=== PATIENT | female | born 1985 | race African-American/Black ===

== ENCOUNTER 2017-04-14 21:39 | Inpatient (IN) | payer MEDICARE ==
[~2017-04-14] VITALS: Ht 167.6 cm; Wt 90.7 kg
--- NOTE | ~2017-04-14 | PN ---
Unit #: [id number] #: [id number] Patient: TWYLA EGAN [id number] [facility] [address] [place] [address] [id number] MR#: [id number] NAME: TWYLA EGAN. ROOM: [facility] Age: 32 Sex: F Admission Date: 04/14/2017 : 1985 Attending Physician: Billy Frederick M.D. Admitting Physician: Billy Frederick M.D. Primary Care Physician: Primary Care Physician Aby NEW NOTES DATE 04/16/2017 DISCUSSION Shona is a 32-year-old female, seen on 04/16/2017. The patient interviewed, chart reviewed, and obtained information from the nursing staff. The patient liked to be addressed as Sincere, the patient was compliant and cooperative, compliant with medication, able to answer questions coherently. The patient's vital signs, 98.0, 84, 16, and 133/56. The patient seemed somewhat guarded, paranoid, isolative. REVIEW OF SYSTEMS Complete review of systems unremarkable. MENTAL STATUS EXAMINATION General appearance: Patient dressed casually in hospital attire. Attention span and concentration, fair. Oriented in place and person. Mood and affect, sad, dysphoric, flat. Speech, monotone. Thought process, guarded, denied any thoughts of harming self or others, denied any hallucinations. Recent and remote memory, poor. Insight and judgment, poor. DIAGNOSIS Bipolar mood disorder, NOS. ASSESSMENT/PLAN Advised to continue with the current medication and therapeutic protocol, and if needed consider further adjustment of medication. Dictated by... Moi Cummings/sharlene TD: 04/17/2017 07:10 JOB #: [id number] Unit #: [id number] #: [id number] Patient: TWYLA EGAN LASHA NEW NOTES Page 1 of 1 X Billy Frederick MD PROGRESS NOTE
--- NOTE | ~2017-04-14 | PA ---
Unit #: [id number] #: [id number] [facility]: [facility] [id number] [facility] [address] [place] [address] [id number] MR#: [id number] NAME: TWYLA EGAN. ROOM: [facility] Age: 32 Sex: F Admission Date: 04/14/2017 : 1985 Date of Assessment: Attending Physician: Billy Frederick M.D. Admitting Physician: Billy Frederick M.D. Primary Care Physician: Primary Care Physician No PSYCHIATRIC ASSESSMENT DATE OF SERVICE 04/14/2017. INFORMANTS The patient reliability, poor; chart reliability, good. CHIEF COMPLAINT None from patient, but agitated. HISTORY OF PRESENT ILLNESS Ms. Mejía is a 32-year-old female who became very upset when use pronoun she. The patient was having rapid speech, pressured speech, agitation, paranoia, mood lability. The patient presented to EPS for the first time. She is not currently open with [facility]. The patient has a history of [facility] and Dr. Tidwell in 2011 diagnosed with bipolar mood disorder. The patient told us that she feels that she is a male her whole life. The patient also reported that she is going to be the next . The patient was rambling in variety of subjects, rapid thought process, guarded paranoid, agitation mood lability, hostile. The patient was unable to give any reliable information. The patient denied any suicidal or homicidal ideation, but delusional, paranoid, delusions of grandeur, agitation. The patient needing inpatient admission at this time for psychiatric stabilization. PAST PSYCHIATRIC HISTORY Remarkable for history of outpatient treatment with Dr. Tidwell for schizophrenia/bipolar mood disorder. History of inpatient [facility] at [facility] twice. FAMILY HISTORY AND SOCIAL HISTORY The patient lives with mother. No history of abuse. No known history of any legal problems known at this time. History of bipolar disorder and depression in mother and maternal grandmother. MEDICAL HISTORY Unremarkable for any chronic medical illness. Musculoskeletal; muscle strength and tone, no atrophy or abnormal movement. Gait normal. MEDICATION HISTORY None available at this time. ALLERGIES No known drug allergies. Unit #: [id number] #: [id number] Patient: TWYLA EGAN SUBSTANCE ABUSE HISTORY History of alcohol use socially. Marijuana, last use 04/12/2017. The patient is poor historian. REVIEW OF SYSTEMS HEENT: Eyes, clear. Ears, nose, mouth, and throat; clear. CARDIOVASCULAR: Unremarkable. RESPIRATORY: Unremarkable. GI: Unremarkable. : Unremarkable. SKIN: Unremarkable. LYMPH NODE: Unremarkable. NEUROLOGIC: Unremarkable. ENDOCRINE: Unremarkable. HEMATOLOGIC: Unremarkable. ALLERGIC/IMMUNOLOGIC: Unremarkable. MUSCULOSKELETAL: Muscle strength and tone, no atrophy or abnormal movement. Gait normal MENTAL STATUS EXAMINATION CONSTITUTIONAL: Measurement of vital signs; temperature 97.9, pulse 72, respirations 16, blood pressure 139/83, height 5 feet 6 inches, and weight 200 pounds. GENERAL APPEARANCE: The patient dressed in hospital attire. No facial deformity noted. MUSCULOSKELETAL: Please see above. PSYCHIATRIC EXAMINATION Description of speech, rambling, rapid, pressured. Description of thought process, circumstantial. Description of association, guarded and paranoid. Description of abnormal psychotic thinking, delusional, paranoid, agitated, hostile. Mood lability, attending to internal stimuli. Description of the patient's judgment, concerning everyday activity, poor. Social situation, poor. Concerning psychiatric condition, poor. Complete mental status examination; oriented in self. Recent and remote memory, poor. Attention span and concentration, poor. Language, fair. Fund of knowledge, poor. Vocabulary, poor. Mood and affect, labile. Insight and judgment, poor. ASSETS AND LIABILITIES Assets; the patient is articulate; able to take care of her ADL. Liability; history of bipolar disorder; psychosis. ADMITTING DIAGNOSES Schizophrenia, chronic, paranoid type F20.0; rule out substance abuse disorder. Secondary diagnosis: Deferred. Medical diagnosis: None. Stressors: Psychosocial stressors. PSYCHIATRIC PLAN AND TREATMENT GOAL AND DISCHARGE PLAN 1. Advised to admit the patient on the inpatient unit. Provide safe, Unit #: [id number] #: [id number] Patient: TWYLA EGAN supportive, and structured environment. 2. Ordered labs; CBC, CMP, UA, and UDS. Advised Zyprexa 10 mg, Cogentin 1 mg, Ativan 1 mg now dose. The patient to attend all the programing on the inpatient unit with structured milieu, group therapy. Treatment goal; to attain euthymic mood, control psychotic symptoms. 3. Discharge plan; plan to stabilize the patient and consider followup in outpatient program. ESTIMATED LENGTH OF STAY 2 weeks. Dictated by... Moi Cummings/anne-marie TD: 04/15/2017 20:05 JOB #: [id number] PSYCHIATRIC ASSESSMENT Page 1 of 1 X Billy Frederick MD X PSYCHIATRIC ASSESSMENT
--- NOTE | ~2017-04-14 | DS ---
Unit #: [id number] #: [id number] Patient: TWYLA EGAN [id number] [facility] [address] [place] [address] [id number] MR#: [id number] NAME: TWYLA EGAN. ROOM: [facility] Age: 32 Sex: F Admission Date: 04/14/2017 : 1985 Discharge Date: 04/17/2017 Attending Physician: Billy Frederick M.D. Primary Care Physician: Primary Care Physician No DISCHARGE SUMMARY REASON FOR ADMISSION Psychosis. DIAGNOSTIC STUDIES LABORATORY DATA: Unremarkable. HOSPITAL COURSE The patient was admitted to inpatient unit on April 14 and discharged on 04/17/2017. The patient was treated with group therapy, individual therapy, structured milieu, and medication management. The patient was responsive to treatment, showed improvement. Subsequently the patient was discharged with a plan to follow up in outpatient program. DISCHARGE MEDICATIONS 1. Desyrel 50 mg at bedtime for sleep. 2. Haldol 10 mg at bedtime for psychosis. 3. Cogentin 1 mg at bedtime for EPS symptom. DISCHARGE DIAGNOSES PSYCHIATRIC: Schizophrenia, chronic, paranoid type, F20.0 Rule out substance abuse disorder. SECONDARY: Deferred. MEDICAL: None. STRESSORS: Psychosocial stressor. FOLLOWUP CARE The patient to follow up in outpatient clinic as per social services assistant. CONDITION AT DISCHARGE The patient pleasant, cooperative. Denied any psychotic symptom or any suicidal ideation. PROGNOSIS Guarded. DIET AND ACTIVITY As tolerated. Dictated by... Billy Frederick M.D. SZC/robert Unit #: [id number] #: [id number] Patient: TWYLA EGAN TD: 04/18/2017 08:55 JOB #: [id number] DISCHARGE SUMMARY Page 1 of 1 X Billy Frederick MD X DISCHARGE SUMMARY
--- NOTE | ~2017-04-14 | HP ---
Unit #: [id number] #: [id number] Patient: SHONA GONZALEZ [id number] [place] [address] [id number] I MR#: [id number] NAME: SHONA GONZALEZ ROOM: [facility] Age: 32 Sex: F Admission Date: 04/14/2017 : 1985 Attending Physician: Billy Frederick M.D. Admitting Physician: Billy Frederick M.D. Primary Care Physician: Primary Care Physician No HISTORY AND PHYSICAL HISTORY OF PRESENT ILLNESS Shona is a 32 year old admitted to [address] [place] [address] with psychotic behavior. She thinks she is a boy. She has had other admissions to this facility because of her psychotic behavior. PAST MEDICAL HISTORY 1. Morbid obesity. 2. Asthma. PAST SURGICAL HISTORY Nothing reported. ALLERGIES No known drug allergies. SOCIAL HISTORY She does not smoke, drinks alcohol on occasion. Admits to using marijuana frequently. FAMILY HISTORY Medically noncontributory. REVIEW OF SYSTEMS She does not answer all questions appropriately. There are no reports of nausea, vomiting or diarrhea. She has had no cough or increased temperature. CURRENT MEDICATIONS 1. Lorazepam 1 mg t.i.d. 2. Cogentin 1 mg t.i.d. 3. Haldol 5 mg t.i.d. 4. Milk of Magnesia p.r.n. 5. Maalox p.r.n. 6. Tylenol p.r.n. PHYSICAL EXAMINATION GENERAL: Alert, morbidly obese, very manly woman in no apparent distress. VITAL SIGNS: Blood pressure 140/82, heart rate 72, respirations 16, temperature 98.6. WEIGHT: 200 pounds. HEIGHT: 5 foot 6 inches. SKIN: Warm and dry without rash or lesion. Unit #: [id number] #: [id number] Patient: SHONA GONZALEZ HEENT: Normocephalic. TMs not viewed. Oral and nasal passages clear. Conjunctivae clear. Pupils equal, round and reactive to light and accommodation. Extraocular movements intact. NECK: Supple without lymphadenopathy or thyromegaly. HEART: Regular rate and rhythm without murmur. LUNGS: Clear. ABDOMEN: Soft, nontender. : Not done. EXTREMITIES: No evidence of cyanosis, clubbing or edema. Moves all extremities without focal deficit. NEUROLOGICAL: Unable to complete extended exam. She does move all extremities without focal deficit. Hand print shop assistant is equal and gait is normal. IMPRESSION Psychiatric admission RECOMMENDATIONS PSYCHIATRIC: Per psychiatrist. MEDICAL: I see no contraindications to participating in facility's activities. MEDICAL PROGNOSIS Good. MEDICAL CONDITION Stable. Dictated by... Marina Rodriguez P.A.-C. for Moi Squires/erich TD: 04/15/2017 21:05 JOB #: [id number] HISTORY AND PHYSICAL Page 1 of 1 X Marina Rodriguez X HISTORY AND PHYSICAL
--- NOTE | ~2017-04-14 | PN ---
Unit #: [id number] #: [id number] Patient: SHONA GONZALEZ [id number] [facility] [address] [place] [address] [id number] MR#: [id number] NAME: SHONA GONZALEZ ROOM: [facility] Age: 32 Sex: F Admission Date: 04/14/2017 : 1985 Attending Physician: Billy Frederick M.D. Admitting Physician: Billy Frederick M.D. Primary Care Physician: Primary Care Physician Aby COLBY PROGRESS NOTES DATE 04/15/2017 DISCUSSION Shona is a 32-year-old female, seen on 04/15/2017. The patient interviewed, chart reviewed, and obtained information from the nursing staff. The patient needing multiple redirections. Mood was labile, agitated, paranoid. The patient was hostile. Unable to give any reliable information. The patient's test was negative. CBC remarkable for WBCs 12.4, CMP unremarkable. Thyroid function test within normal range. REVIEW OF SYSTEMS Complete review of systems unremarkable. MENTAL STATUS EXAMINATION General appearance: Patient dressed in hospital attire. Attention span and concentration, poor. Orientation in self. Mood and affect, labile. Speech, pressured. Thought process, circumstantial. The patient denied any thoughts of harming self or others but guarded and paranoid. Recent and remote memory, poor. Insight and judgment, poor. DIAGNOSES 1. Psychosis, NOS. 2. Schizophrenia, chronic paranoid type. ASSESSMENT/PLAN Advised to obtain collateral information, advised lorazepam 1 mg three times a day, Cogentin 1 mg three times a day, haloperidol 5 mg three times a day. Plan to consider medications watermaster medication if needed. TREATMENT GOAL To obtain euthymic mood and gain insight into her problems, learn coping skills. DISCHARGE PLAN Plan to stabilize patient and consider outpatient program. Dictated by... Billy Frederick M.D. Unit #: [id number] #: [id number] Patient: SHONA GONZALEZ HAYLEE/sharlene TD: 04/16/2017 10:46 JOB #: [id number] [facility] PROGRESS NOTES Page 1 of 1 X Billy Frederick MD PROGRESS NOTE
[2017-04-15 09:42] LABS: BASOPHIL% 0.2 % (0-2.5); EOSINOPHIL# 0.1 X10e3 (0-0.7); EOSINOPHIL% 0.7 % (0.0-7.0); HEMATOCRIT 40.7 % (35.0-45.0); HEMOGLOBIN 13.5 gm/dL (12.0-16.0); LYMPHOCYTE# 2.3 X10e3 (1.0-3.5); LYMPHOCYTE% 18.9 % (17.0-45.0); MEAN CELL VOLUME 85.6 FL (83-96); MEAN CORPUSCULAR HEMOGLOBIN 28.3 PG (28-34); MEAN CORPUSCULAR HGB CONC 33.1 g/dL (30-36); MEAN PLATELET VOLUME 9.2 FL (6.5-11.5); MONOCYTE# 1.1 X10e3 (0-1.0); MONOCYTE% 9.1 % (3.0-12.0); NEUTROPHIL# 8.9 X10e3 (1.5-7.1); NEUTROPHIL% 71.1 % (40-75); PLATELET COUNT 233 X10e3 (140-420); RED BLOOD COUNT 4.75 X10e (3.90-5.30); RED CELL DISTRIBUTION WIDTH 13.7 % (11.0-15.5); WHITE BLOOD COUNT 12.4 X10e3 (4.0-10.5)
[2017-04-15 09:52] LABS: DIFF IND NO
[2017-04-15 10:30] LABS: THYROID STIMULATING HORMONE 1.57 uIU/ml (0.34-5.60)
[2017-04-15 10:37] LABS: FREE THYROXIN (T4) 1.09 ng/dL (0.58-1.64)
[2017-04-15 10:40] LABS: ALBUMIN SERUM 4.6 g/dL (3.5-5.0); BILIRUBIN,TOTAL 0.8 mg/dL (0.2-2.0); BUN/CREATININE RATIO 14.28; CALCIUM SERUM 9.6 mg/dL (8.4-10.2); CREATININE SERUM 0.7 mg/dL (0.6-1.4); GLOM FILT RATE Estimated 132.9 mL/min (>60); POTASSIUM 3.9 mmol/L (3.5-5.1); PROTEIN TOTAL SERUM 7.5 g/dL (6.0-8.3)
== END 2017-04-17 11:15 | disposition home or self-care (01) | DRG 885 ==
LOC: P1S 23:19
PROVIDERS: Psychiatry & Neurology Psychiatry
DX: F20.0 Paranoid schizophrenia (principal); E66.01 Morbid (severe) obesity due to excess calories; J45.909 Unspecified asthma, uncomplicated
CPT/HCPCS: 80053; 84439; 84443; 84703; 85025